=== PATIENT | female | born 1960 | race Caucasian/White ===

== ENCOUNTER 2023-05-23 12:23 | Observation (INO) | payer OTHER ==
[2023-05-23] MEDS ORDERED: Zofran 4 MG/2 ML VIAL IV ONE ×2 (12:58→14:05)
[2023-05-23] MEDS ORDERED: Sodium Chloride 0.9% 1000 ML 1,000 ML IV STA (12:58)
[2023-05-23] MEDS ORDERED: Sodium Chloride 0.9% 1000 ML 1,000 ML ONE (13:02)
[2023-05-23 13:16] LABS: Absolute Neutrophil Ct (ANC) 11.79 x10^3/uL (1.4-6.9); BASOPHIL % 0.4 % (0.0-0.4); Basophil (Absolute #) 0.05 x10^3/uL (0-0.4); Eosinophil % 0.6 % (0.00-5.0); Eosinophil (Absolute #) 0.08 x10^3/uL (0-0.5); Hematocrit 46.8 % (35-47); Hemoglobin 14.3 g/dL (12.0-16.0); IMMATURE GRAN # 0.07 x10^3u/L (0.00-0.03); IMMATURE GRAN % 0.5 % (0.00-0.4); Lymphocyte (Absolute #) 0.34 x10^3/uL (1.0-4.6); Lymphocytes % 2.6 % (24.0-44.0); Mean Corpuscular Hemoglobin 28.7 pg (26-32); Mean Corpuscular Hgb Concent. 30.6 g/dL (32-36); Monocyte (Absolute #) 0.73 x10^3/uL (0.0-1.3); Monocytes % 5.6 % (0.0-12.0); Neutrophil % 90.3 % (36.0-66.0); Platelet Count 218 x10^3/uL (150-450); Red Blood Count 4.98 x10^6/uL (4.1-5.4); Red Cell Distribution Width 13.3 % (11.5-14.0); White Blood Count 13.1 x10^3/uL (4.0-10.5)
[2023-05-23 13:39] LABS: ALBUMIN 4.6 g/dL (3.5-5.0); BILIRUBIN,TOTAL 1.2 mg/dL (0.2-1.3); Calcium 9.6 mg/dL (8.4-10.2); Creatinine 1 1.89 mg/dL (0.52-1.04); EST GLOMERULAR FILTRATION RATE 28.6 ML/MIN; Potassium 4.7 mmol/L (3.5-5.1); Total Protein 7.7 g/dL (6.3-8.2)
[2023-05-23] MEDS ORDERED: Zofran 4 MG/2 ML VIAL ONE (14:03)
[2023-05-23 14:13] LABS: Slide Review 1 YES
[2023-05-23] MEDS ORDERED: TYLENOL EXTRA STRENGTH 500 MG PO PRN (14:32)
[2023-05-23] MEDS ORDERED: TYLENOL EXTRA STRENGTH 500 MG ONE (14:33)
[2023-05-23] MEDS: Sodium Chloride 0.9% 1000 ML 1,000 ML IV SCH ×2 (14:34→17:42)
--- NOTE | 2023-05-23 15:24 | XRAY ---
CLINICAL HISTORY:fall. syncope COMPARISON:None; TECHNIQUES:Nonenhanced CT scan of the brain in axial plane with multiplanar reconstructions in soft tissue windows; FINDINGS: Normal CT attenuation of both cerebral hemispheres with no areas of abnormal attenuation values. No suspicious space-occupying lesions. No intra or extra-axial collections of fresh blood density. Normal size and shape of the ventricles, basal cisterns and cortical sulci. Basal ganglia, thalamus and internal capsule appear normal. Brainstem and pedro appear normal. No shift of midline structures. Unremarkable posterior fossa. Largely preserved cranial calvarial bones. Visualized paranasal sinuses appear clear. Deviated nasal septum towards left side. IMPRESSION: No acute intracranial abnormality. Electronically Signed by: Erickson Shoemaker MD. (05/23/2023 14:20:44 SPRING PRODUCTION SUPERVISOR)
--- NOTE | 2023-05-23 15:28 | ERPHSYRPT ---
- History of Present Illness Time Seen by Provider: 05/23/23 12:39 Source: patient, family, EMS Exam Limitations: no limitations Patient Subjective Stated Complaint: Sycope-N/V Triage Nursing Assessment: Patient brought into ED per EMS and transferred to bed with assist of 3. Patient A+O X 3. Patient's skin pink, warm and dry. Patient states she woke up at 0700 with vomiting and diarrhea. Patient states she thinks she ate something bad last night. Patient states she was going to bathroom to have BM and the next thing she remembers she is on the floor. Patient has 1 cm laceration noted to left side of head. Patient complains of intermittent abdominal aching /. Patient complains of dizziness, headache, N/V. Abdomen soft and round with BS X 4. Physician History: 62 years old female with history of anxiety depression, hypertension, GERD presented to the ER via EMS with chief complaint of gastroenteritis with near syncopal episode. Patient reports she woke up around 7 AM, had some abdominal discomfort/cramping and started to have intractable nausea vomiting diarrhea. She had multiple episodes of loose watery stool without hematochezia. No hematemesis. She had to go back and forth to the bathroom and was going to the bathroom, felt weak all over and collapsed on the floor. Denies any chest pain palpitations or shortness of breath before or after the fall. was next room and found her on the floor, does not think patient had a loss of consciousness if they are more than few seconds. She was not confused or altered. No seizure-like activity noticed. Patient reports generalized weakne ss fatigue and tiredness. Lack of energy and feels dehydrated. Patient thinks this is secondary to the food she had last night. No fever or chills reported. Denies any known sick contact. Timing/Duration: today, resolved prior to arrival, sudden, improved Severity: moderate Associated Symptoms: nausea, vomiting, abdominal pain, headaches, syncope, weakness, No shortness of breath, No cough, No chills, No chest pain, No fever, No loss of appetite, No malaise Allergies/Adverse Reactions: moxifloxacin HCl [From Avelox] Allergy (Intermediate, Verified 05/23/23 12:24) rash, itching, tachycardia Home Medications: Acetaminophen [Tylenol Extra Strength] 500 mg PO PRN 03/25/12 [History] Escitalopram Oxalate [Lexapro] 20 mg PO DAILY 03/25/12 [History] Esomeprazole Magnesium [Nexium] 40 mg PO DAILY 03/25/12 [History] Hctz/Triamteren 37.5 mg/25 mg* [Maxzide-25MG Tablet] 12.5 mg PO DAILY 03/25/12 [History] Metoprolol Succinate 25 mg PO BID 03/25/12 [History] Olmesartan Medoxomil 20 mg [Benicar 20 MG] 20 mg PO DAILY 03/25/12 [History] Hx Tetanus, Diphtheria Vaccination/Date Given: No (20 YRS AGO) Hx Influenza Vaccination/Date Given: No Hx Pneumococcal Vaccination/Date Given: Yes Immunizations Up to Date: Yes Travel Risk - International Travel Have you traveled outside of the country in past 3 weeks: No - Coronavirus Screening Are you exhibiting any of the following symptoms?: No Close contact with a COVID-19 positive Pt in past 14-21 Days: No - Vaccine Status Have you recieved a Covid-19 vaccination: Yes Insurance Underwriter: Modern[employer] - Vaccination Dates Date of 2cond Vaccination (if applicable): na - Review of Systems Constitutional: Fatigue, Weakness Eyes: No Symptoms Ears, Nose, & Throat: No Symptoms Respiratory: No Symptoms Cardiac: No Symptoms Abdominal/Gastrointestinal: Abdominal Pain, Nausea, Vomiting, Diarrhea Genitourinary Symptoms: No Symptoms Musculoskeletal: No Symptoms Skin: No Symptoms Neurological: Headache Psychological: No Symptoms Endocrine: No Symptoms Hematologic/Lymphatic: No Symptoms Immunological/Allergic: No Symptoms - Past Medical History Pertinent Past Medical History: No Neurological History: No Pertinent History ENT History: No Pertinent History Cardiac History: High Cholesterol, Hypertension Respiratory History: No Pertinent History, COPD Endocrine Medical History: No Pertinent History Musculoskeletal History: No Pertinent History GI Medical History: GERD History: No Pertinent History Psycho-Social History: No Pertinent History Female Reproductive Disorders: Breast Cancer Other Medical History: 13 LYMPH NODES REMOVED IN HER LEFT ARM IN 1985 - Past Surgical History Past Surgical History: Yes Neuro Surgical History: No Pertinent History Cardiac: No Pertinent History Respiratory: No Pertinent History Gastrointestinal: No Pertinent History Genitourinary: No Pertinent History Musculoskeletal: No Pertinent History Female Surgical History: Breast Implant Other Surgical History: 13 LYMPH NODES REMOVED IN HER LEFT ARM, LILA MASTECTOMY FROM BREAST CA WITHOUT ANY CHEMO TX - Social History Smoking Status: Former smoker Exposure to second hand smoke: No Drug Use: none Patient Lives Alone: No - Nursing Vital Signs Nursing Vital Signs: Initial Vital Signs Temperature 97.6 F 05/23/23 12:29 Pulse Rate 64 05/23/23 12:29 Respiratory Rate 18 05/23/23 12:29 Blood Pressure 111/38 05/23/23 12:29 O2 Sat by Pulse Oximetry 96 05/23/23 12:29 Pain Scale Pain Intensity 5 - Physical Exam General Appearance: no apparent distress, alert Eye Exam: PERRL/EOMI, eyes nml inspection Ears, Nose, Throat Exam: normal ENT inspection, TMs normal, pharynx normal Neck Exam: normal inspection, non-tender, supple, full range of motion Respiratory Exam: normal breath sounds, lungs clear Cardiovascular Exam: regular rate/rhythm, normal heart sounds Gastrointestinal/Abdomen Exam: soft, normal bowel sounds, No tenderness Extremity Exam: normal inspection, normal range of motion, pelvis stable Neurologic Exam: alert, oriented x 3, cooperative, leaf coverer II-XII nml as tested, normal mood/affect, nml cerebellar function, sensation nml, other (2 cm laceration left anterior parietal area with no active spurting or oozing. No step in deformity.), No motor deficits, No sensory deficit Skin Exam: normal color, warm SpO2 Interpretation: normal SpO2: 97 O2 Delivery: Room Air Procedures - Laceration/Wound Repair Left Frontal Time of Procedure: 15:00 Wound Location: head Wound Length (cm): 2 Wound's Depth, Shape: superficial Wound Explored: clean Irrigated: Yes Hibiclens Prep: Yes Anesthesia: 1% Lidocaine Volume Anesthetic (ccs): 2 Wound Repaired With: Benedict Number of Sutures: 2 Layer Closure?: No Splint Applied?: No Sling Applied?: No - Course EKG Interpreted by Me: RATE (64), Sinus Rhythm, NORMAL AXIS, NORMAL INTERVALS, NORMAL QRS Ordered Tests: Active Orders 24 hr Category Date Time Status EKG-ER Only STAT Care 05/23/23 12:58 Active IV Insertion STAT Care 05/23/23 12:58 Active NPO (ED) STAT Care 05/23/23 12:58 Active ABDOMEN AND PELVIS W/0 CONTRAS [CT] Stat Exams 05/23/23 12:58 Taken CHEST 1 VIEW (PORTABLE) Stat Exams 05/23/23 12:58 Taken HEAD WITHOUT CONTRAST [CT] Stat Exams 05/23/23 12:58 Completed CBC W DIFF Stat Lab 05/23/23 13:11 Completed CMP Stat Lab 05/23/23 13:11 Completed LIPASE Stat Lab 05/23/23 13:11 Completed Lactic Acid Stat Lab 05/23/23 13:10 Completed Lactic Acid Stat Lab 05/23/23 15:15 Received MAG [MAGNESIUM] Stat Lab 05/23/23 13:11 Completed PROCALCITONIN Stat Lab 05/23/23 13:13 Completed TROPONIN Q4H Lab 05/23/23 13:11 Completed TROPONIN Q4H Lab 05/23/23 17:00 Ordered TROPONIN Q4H Lab 05/23/23 21:00 Ordered UA W/RFX UR CULTURE Stat Lab 05/23/23 12:58 Ordered Medication Summary Generic Name Dose Route Start Last Admin Trade Name Freq PRN Reason Stop Dose Admin Acetaminophen 1,000 mg 05/23/23 14:32 05/23/23 14:34 Acetaminophen 500 Mg Tablet PO 06/22/23 14:31 1,000 mg Q4H PRN PRN Administration HEADACHE Sodium Chloride 1,000 mls @ 125 mls/hr 05/23/23 14:30 05/23/23 14:34 Sodium Chloride 0.9% 1000 Ml IV 06/22/23 14:29 125 mls/hr .Q8H MARY Administration Discontinued Medications Generic Name Dose Route Start Last Admin Trade Name Freq PRN Reason Stop Dose Admin Sodium Chloride 1,000 mls @ 999 mls/hr 05/23/23 12:58 05/23/23 14:09 Sodium Chloride 0.9% 1000 Ml IV 05/23/23 13:58 Infused .Q1H1M STA Infusion Sodium Chloride Confirm 05/23/23 13:02 Sodium Chloride 0.9% 1000 Ml Administered 05/23/23 13:03 Dose 1,000 mls @ ud .ROUTE .STK-MED ONE Ondansetron HCl 4 mg 05/23/23 12:58 05/23/23 13:03 Ondansetron Hcl 4 Mg/2 Ml Vial IV 05/23/23 12:59 Not Given STAT ONE Ondansetron HCl Confirm 05/23/23 14:03 Ondansetron Hcl 4 Mg/2 Ml Vial Administered 05/23/23 14:04 Dose 4 mg .ROUTE .STK-MED ONE Ondansetron HCl 4 mg 05/23/23 14:05 05/23/23 14:05 Ondansetron Hcl 4 Mg/2 Ml Vial IV 05/23/23 14:06 4 mg STAT ONE Administration Lab/Rad Data: Laboratory Result Diagrams 05/23/23 13:11 05/23/23 13:11 Laboratory Results 05/23/23 05/23/23 05/23/23 Range/Units 13:13 13:11 13:11 WBC (4.0-10.5) x10^3/uL RBC (4.1-5.4) x10^6/uL Hgb (12.0-16.0) g/dL Hct (35-47) % MCV (78-100) fL MCH (26-32) pg MCHC (32-36) g/dL RDW (11.5-14.0) % Plt Count (150-450) x10^3/uL MPV (7.5-11.0) fL Gran % (36.0-66.0) % Immature Gran % (Auto) (0.00-0.4) % Nucleat RBC Rel Count (0.00-0.1) % Eos # (Auto) (0-0.5) x10^3/uL Immature Gran # (Auto) (0.00-0.03) x10^3u/L Absolute Lymphs (auto) (1.0-4.6) x10^3/uL Absolute Monos (auto) (0.0-1.3) x10^3/uL Absolute Nucleated RBC (0.00-0.01) x10^3u/L Lymphocytes % (24.0-44.0) % Monocytes % (0.0-12.0) % Eosinophils % (0.00-5.0) % Basophils % (0.0-0.4) % Absolute Granulocytes (1.4-6.9) x10^3/uL Basophils # (0-0.4) x10^3/uL Sodium (137-145) mmol/L Potassium (3.5-5.1) mmol/L Chloride (98-107) mmol/L Carbon Dioxide (22-30) mmol/L Anion Gap (5-15) MEQ/L BUN (7-17) mg/dL Creatinine (0.52-1.04) mg/dL Estimated GFR ML/MIN Glucose (74-106) mg/dL Lactic Acid (0.4-2.0) Calcium (8.4-10.2) mg/dL Magnesium 1.8 (1.6-2.3) mg/dL Total Bilirubin (0.2-1.3) mg/dL AST (14-36) U/L ALT (0-35) U/L Alkaline Phosphatase (38-126) U/L Troponin I < 0.012 (0.000-0.034) ng/mL Serum Total Protein (6.3-8.2) g/dL Albumin (3.5-5.0) g/dL Lipase (23-300) U/L Procalcitonin 0.581 H (0.030-0.080) ng/mL Slides for Path Review 05/23/23 05/23/23 05/23/23 Range/Units 13:11 13:11 13:10 WBC 13.1 H (4.0-10.5) x10^3/uL RBC 4.98 (4.1-5.4) x10^6/uL Hgb 14.3 (12.0-16.0) g/dL Hct 46.8 (35-47) % MCV 94.0 (78-100) fL MCH 28.7 (26-32) pg MCHC 30.6 L (32-36) g/dL RDW 13.3 (11.5-14.0) % Plt Count 218 (150-450) x10^3/uL MPV 10.0 (7.5-11.0) fL Gran % 90.3 H (36.0-66.0) % Immature Gran % (Auto) 0.5 H (0.00-0.4) % Nucleat RBC Rel Count 0.0 (0.00-0.1) % Eos # (Auto) 0.08 (0-0.5) x10^3/uL Immature Gran # (Auto) 0.07 H (0.00-0.03) x10^3u/L Absolute Lymphs (auto) 0.34 L (1.0-4.6) x10^3/uL Absolute Monos (auto) 0.73 (0.0-1.3) x10^3/uL Absolute Nucleated RBC 0.00 (0.00-0.01) x10^3u/L Lymphocytes % 2.6 L (24.0-44.0) % Monocytes % 5.6 (0.0-12.0) % Eosinophils % 0.6 (0.00-5.0) % Basophils % 0.4 (0.0-0.4) % Absolute Granulocytes 11.79 H (1.4-6.9) x10^3/uL Basophils # 0.05 (0-0.4) x10^3/uL Sodium 140 (137-145) mmol/L Potassium 4.7 (3.5-5.1) mmol/L Chloride 106 (98-107) mmol/L Carbon Dioxide 23 (22-30) mmol/L Anion Gap 16.0 H (5-15) MEQ/L BUN 31 H (7-17) mg/dL Creatinine 1.89 H (0.52-1.04) mg/dL Estimated GFR 28.6 ML/MIN Glucose 127 H (74-106) mg/dL Lactic Acid 2.1 H (0.4-2.0) Calcium 9.6 (8.4-10.2) mg/dL Magnesium (1.6-2.3) mg/dL Total Bilirubin 1.20 (0.2-1.3) mg/dL AST 32 (14-36) U/L ALT 31 (0-35) U/L Alkaline Phosphatase 56 (38-126) U/L Troponin I (0.000-0.034) ng/mL Serum Total Protein 7.7 (6.3-8.2) g/dL Albumin 4.6 (3.5-5.0) g/dL Lipase 183 (23-300) U/L Procalcitonin (0.030-0.080) ng/mL Slides for Path Review YES - Progress Progress: improved Progress Note: 05/23/23 15:30 62 years old female with history of anxiety depression, hypertension, GERD presented to the ER via EMS with chief complaint of gastroenteritis with near syncopal episode. Patient reports she woke up around 7 AM, had some abdominal discomfort/cramping and started to have intractable nausea vomiting diarrhea. She had multiple episodes of loose watery stool without hematochezia. No hematemesis. She had to go back and forth to the bathroom and was going to the bathroom, felt weak all over and collapsed on the floor. Denies any chest pain palpitations or shortness of breath before or after the fall. was next room and found her on the floor, does not think patient had a loss of consciousness if they are more than few seconds. She was not confused or altered. No seizure-like activity noticed. Patient reports generalized weakness fatigue and tiredness. Lack of energy and feels dehydrated. Patient thinks this is secondary to the food she had last night. No fever or chills reported. Denies any known sick contact. EKG showed sinus rhythm with a rate of 64 with no acute ischemic changes. Patient was hypotensive and has a positive orthostatics, given fluid bolus along with Zofran. On reevaluation she is feeling much better. I have obtained CT head as patient did hit her head and has a lack, is negative for any acute intracranial findings. Chest x-ray negative for any acute cardiopulmonary findings reviewed by me, official report is pending. Work-up showed white count of 13, creatinine of 1.83 with previous comparison available in 2017 creatinine was less than 1. She does not have any episode of vomiting while in the ER but does have loose stool x1. Denies any chest pain or palpitations while in here. Blood pressure improved to low 100s after fluids. CT abdomen pelvis is negative for any acute intraabdominal/pelvic findings. I believe patient has probably viral gastroenteritis with dehydration causing orthostatic lightheadedness/near syncope/syncopal episode. I have discussed with patient the results of work-up and need for observation admission with IV hydration and she agrees with it. Laceration on the scalp was repaired. 05/23/23 15:33 05/23/23 16:[address] Fraire, reviewed history, work-up and patient is being admitted. We will hold off on antibiotics although has elevated Pro-Rc but no obvious focus of infection. Discussed with : Other Will see patient in: hospital (observation) Counseled pt/family regarding: lab results, diagnosis, need for follow-up, rad results Medical Desision Making - Independent Historian Additional History obtained from: Spouse, Medication Care Manager/EMT - Discussion of managment Care discussed with:: hospitalist (Dr. Fraire at 1635) Reviewed:: Test results, Need for additional workup Agreed on:: Treatment plan, place in obs Will see patient: in hospital - Diagnostic Testing Diagnostic test were ordered, analyzed, and reviewed by me: Yes Radiological Interpretation: Interpreted by me, Reviewed by me - Risk of complications The pt has a high risk of morbidity or mortality based on: Decision regarding hospitilization or escalation of hosp level of care - Departure Departure Disposition: Observation Clinical Impression: Syncope due to orthostatic hypotension, Acute gastroenteritis, Acute renal failure Condition: Stable Critical Care Time: No Referrals: RADHAMES NEGRO MD [Primary Care Provider] - Follow up/PCP as directed
[2023-05-23] MEDS ORDERED: Zofran 4 MG/2 ML VIAL IV PRN (17:19)
[2023-05-23] MEDS ORDERED: TYLENOL 325 MG PO PRN (17:19)
[2023-05-23 17:23] LABS: Appearance Turbid (Clear); Bacteria Few /HPF (None Seen); Bilirubin Moderate (Negative); Blood Negative (Negative); Epithelial Cells Moderate /HPF (None Seen); Glucose, Urine Negative (Negative); Hyaline Casts >50 /LPF (0-2); Ketones Trace (Negative); Leukocyte Esterase Small (Negative); Nitrite Negative (Negative); Protein,Urine Dip 100 (Negative); Specific Gravity >=1.030 (1.005-1.030)
[2023-05-23 17:25] LABS: ADD URINE CULTURE? YES (NO)
[2023-05-23] MEDS ORDERED: PROTONIX 40 MG IV IV ONE (17:41)
--- NOTE | 2023-05-23 18:28 | XRAY ---
CLINICAL HISTORY:gastroenteritis COMPARISON:None. TECHNIQUE:Contiguous, multislice, nonenhanced CT scan of the abdomen and pelvis was performed in the axial plane with multiplanar reconstructions. FINDINGS: Normal-sized liver showing homogeneous attenuation with no obvious focal mass lesion within the limitations of noncontrast study. No intrahepatic biliary dilatation.Gallbladder is surgically removed as evidenced by metallic densities in the gallbladder fossa.Pancreas and spleen appear unremarkable.Sliding hiatal hernia.No adrenal mass.Both kidneys appear normal in size, shows normal contour and attenuation. A small peripelvic cyst at the lower pole of left kidney measuring about 15 mm.No calculus or hydronephrosis in either kidney.No ascites. No para-aortic lymphadenopathy.Few noncomplicated colonic diverticulosis involving sigmoid colon without evidence of diverticulitis. Appendix visualized and appear within normal limits.Urinary bladder is empty.Pelvic organs appear unremarkable. No adnexal mass.Degenerative changes in the visualized spine. No acute osseous abnormality or suspicious bony lesions.Visualized sections of lower chest shows centrilobular emphysematous changes. Intrapulmonary nodule in the right lower lobe measures about 4.[address] chest may be recommended for further evaluation. IMPRESSION: Limited parenchymal evaluation within the limitations of noncontrast study. No acute intra-abdominal abnormality. Few noncomplicated colonic diverticulosis involving sigmoid colon without evidence of diverticulitis. A small peripelvic cyst at the lower pole of left kidney. Rest of the findings as detailed above. Electronically Signed by: Erickson Shoemaker MD. (05/23/2023 13:24:38 PUMP ERECTOR HELPER)
[2023-05-23] MEDS ORDERED: Lactated Ringers 1,000 ML IV ONE ×3 (18:34→20:03)
--- NOTE | 2023-05-23 18:55 | XRAY ---
Indication: Syncope. Comparison: June 12, 2007 Portable chest again hyperinflated without focal infiltrate, consolidation, or large effusion. Heart not enlarged. Bony thorax intact again with osteopenia and mild degenerative changes. Impression: Nonacute hyperinflated chest with chronic features.
[2023-05-23] MEDS: Advair Hfa 115/21 Common canister IH SCH (20:08)
[2023-05-23] MEDS: DUONEB 0.5-3 MG/3 ml Neb IH SCH (20:08)
[2023-05-23] MEDS ORDERED: ZOCOR 20MG PO ONE (22:30)
[2023-05-23] MEDS ORDERED: Protonix 20MG Tablet PO ONE (22:30)
[2023-05-23] MEDS ORDERED: Toprol-Xl 25MG Tablets PO ONE (22:30)
[2023-05-23] MEDS ORDERED: Zestril 20 MG PO ONE (22:30)
[2023-05-23] MEDS ORDERED: Lexapro PO ONE (22:30)
[2023-05-23] MEDS ORDERED: Protonix 40MG Tablet ONE (22:53)
[2023-05-24] MEDS: Sodium Chloride 0.9% 1000 ML 1,000 ML IV SCH (00:29)
[2023-05-24 04:59] LABS: BASOPHIL % 0.1 % (0.0-0.4); Basophil (Absolute #) 0.01 x10^3/uL (0-0.4); Eosinophil % 0.1 % (0.00-5.0); Eosinophil (Absolute #) 0.01 x10^3/uL (0-0.5); Hematocrit 38.6 % (35-47); Hemoglobin 11.6 g/dL (12.0-16.0); IMMATURE GRAN # 0.03 x10^3u/L (0.00-0.03); IMMATURE GRAN % 0.4 % (0.00-0.4); Lymphocyte (Absolute #) 0.34 x10^3/uL (1.0-4.6); Lymphocytes % 4.3 % (24.0-44.0); Mean Cell Volume 94.1 fL (78-100); Mean Corpuscular Hemoglobin 28.3 pg (26-32); Mean Corpuscular Hgb Concent. 30.1 g/dL (32-36); Mean Platelet Volume 10.2 fL (7.5-11.0); Monocyte (Absolute #) 0.65 x10^3/uL (0.0-1.3); Monocytes % 8.2 % (0.0-12.0); Neutrophil % 86.9 % (36.0-66.0); Platelet Count 177 x10^3/uL (150-450); Red Cell Distribution Width 13.6 % (11.5-14.0); White Blood Count 7.9 x10^3/uL (4.0-10.5)
[2023-05-24 05:25] LABS: ALBUMIN 3.5 g/dL (3.5-5.0); ANION GAP 12.7 MEQ/L (5-15); BILIRUBIN,TOTAL 1.1 mg/dL (0.2-1.3); Calcium 8.3 mg/dL (8.4-10.2); Creatinine 1 1.5 mg/dL (0.52-1.04); EST GLOMERULAR FILTRATION RATE 37.3 ML/MIN; Potassium 4.8 mmol/L (3.5-5.1); Total Protein 6.2 g/dL (6.3-8.2)
[2023-05-24 06:18] LABS: Slide Review 1 YES
--- NOTE | 2023-05-24 06:33 | PCM.HP ---
History of Present Illness - Chief Complaint Chief Complaint: Syncope Date: 05/23/23 History of Present Illness: is a 62 year old female. She presents with orthostatic syncope and laceration to the head which required two stapes in the ED. She reports acute onset of nausea and diarrhea and emesis that caused her to feel weak. She got up to go to the bathroom and lost consciousness. this began after eating some lunch meat her got her. Her hubasnd did not eat the meat and is fine. She fed the meet to her dogs who are also ill. No fevers or chills. She has been unable to keep food or liquids down. - Review of Systems Eyes: No Symptoms Ears, Nose, & Throat: No Symptoms Respiratory: No Symptoms Cardiac: No Symptoms Abdominal/Gastrointestinal: Diarrhea Genitourinary Symptoms: No Symptoms Musculoskeletal: No Symptoms Skin: No Symptoms Medications & Allergies Home Medications: Home Medication List Acetaminophen [Tylenol Extra Strength] 500 mg PO Q4H PRN 03/25/12 [History Confirmed 05/23/23] Escitalopram Oxalate [Lexapro] 20 mg PO HS 03/25/12 [History Confirmed 05/23/23] Esomeprazole Magnesium [Nexium] 40 mg PO HS 03/25/12 [History Confirmed 05/23/23] Metoprolol Succinate 25 mg PO BID 03/25/12 [History Confirmed 05/23/23] Albuterol Sulfate 1 amp IH Q4H PRN 05/23/23 [History Confirmed 05/23/23] Budesonide/Formoterol Fumarate [Budesonide-Formoterol 160-4.5] 2 puffs IH BID 05/23/23 [History Confirmed 05/23/23] Pravastatin Sodium 40 mg PO HS 05/23/23 [History Confirmed 05/23/23] Spironolact/Hydrochlorothiazid [Aldactazide 25-25 Tablet] 1 each PO DAILY 05/23/23 [History Confirmed 05/23/23] lisinopriL [Lisinopril] 40 mg PO HS 05/23/23 [History Confirmed 05/23/23] Allergies/Adverse Reactions: Allergies Allergy/AdvReac Type Severity Reaction Status Date / Time moxifloxacin HCl Allergy Intermediate rash, Verified 05/23/23 12:24 [From Avelox] itching, tachycardia - Past Medical History Past Medical History: Yes Neurological History: No Pertinent History ENT History: No Pertinent History Cardiac History: High Cholesterol, Hypertension Respiratory History: No Pertinent History, COPD Endocrine Medical History: No Pertinent History Musculoskelatal History: No Pertinent History GI Medical History: GERD, Gallbladder Disease History: No Pertinent History Pyscho-Social History: Depression Reproductive Disorders: Breast Cancer Comment: 13 LYMPH NODES REMOVED IN HER LEFT ARM IN 1985 - Female History Are you now?: No - Past Surgical History Past Surgical History: Yes Neuro Surgical History: No Pertinent History Cardiac History: No Pertinent History Respiratory Surgery: No Pertinent History GI Surgical History: Cholecystectomy Genitourinary Surgical Hx: No Pertinent History Musculskeletal Surgical Hx: No Pertinent History Female Surgical History: Mastectomy, Breast Implant Other Surgical History: 13 LYMPH NODES REMOVED IN HER LEFT ARM, LILA MASTECTOMY FROM BREAST CA WITHOUT ANY CHEMO TX, GALLBLADDER SX 2011 - Social History Smoking Status: Former smoker How long have you smoked: 35 Exposure to second hand smoke: No Alcohol: None Drug Use: none - Physical Exam Vital Signs: Vital Signs - 24 hr Temp Pulse Resp BP Pulse Ox 05/24/23 04:00 98.7 F 85 16 124/58 91 L 05/24/23 00:00 97.1 F 84 17 139/60 91 L 05/23/23 21:40 141/60 05/23/23 20:08 78 20 94 L 05/23/23 20:00 97.1 F 92 H 18 122/56 91 L 05/23/23 19:59 142/62 05/23/23 18:42 86 106/49 96 05/23/23 18:41 72 118/53 96 05/23/23 18:09 79 20 94 L 05/23/23 17:33 96.8 F 77 18 143/63 93 L 05/23/23 16:42 97 05/23/23 14:10 62 18 83/33 97 05/23/23 12:29 97.6 F 64 18 111/38 96 General Appearance: no apparent distress Neurologic Exam: alert, oriented x 3, cooperative Neck Exam: normal inspection Respiratory Exam: normal breath sounds Cardiovascular Exam: regular rate/rhythm, normal heart sounds Gastrointestinal/Abdomen Exam: soft, normal bowel sounds Wound Assessment: Skin/Wound Assessment Wound/Incision Assessment Start: 05/23/23 17:36 Text: Status: Active Freq: Q12H Protocol: Document 05/23/23 20:00 LB (Rec: 05/23/23 20:20 LB [id number]) Wound/Incision Assessment Left Frontal Wound Assessment Shift Assessment Wound Type Laceration Drainage Odor None/Absent General Appearance Well Approximated,[place] Intact,Open to air Results - Labs Lab/Micro Results: Lab Results-Last 24 Hours 05/23/23 05/23/23 05/23/23 Range/Units 13:10 13:11 13:11 WBC 13.1 H (4.0-10.5) x10^3/uL RBC 4.98 (4.1-5.4) x10^6/uL Hgb 14.3 (12.0-16.0) g/dL Hct 46.8 (35-47) % MCV 94.0 (78-100) fL MCH 28.7 (26-32) pg MCHC 30.6 L (32-36) g/dL RDW 13.3 (11.5-14.0) % Plt Count 218 (150-450) x10^3/uL MPV 10.0 (7.5-11.0) fL Gran % 90.3 H (36.0-66.0) % Immature Gran % (Auto) 0.5 H (0.00-0.4) % Nucleat RBC Rel Count 0.0 (0.00-0.1) % Eos # (Auto) 0.08 (0-0.5) x10^3/uL Immature Gran # (Auto) 0.07 H (0.00-0.03) x10^3u/L Absolute Lymphs (auto) 0.34 L (1.0-4.6) x10^3/uL Absolute Monos (auto) 0.73 (0.0-1.3) x10^3/uL Absolute Nucleated RBC 0.00 (0.00-0.01) x10^3u/L Lymphocytes % 2.6 L (24.0-44.0) % Monocytes % 5.6 (0.0-12.0) % Eosinophils % 0.6 (0.00-5.0) % Basophils % 0.4 (0.0-0.4) % Absolute Granulocytes 11.79 H (1.4-6.9) x10^3/uL Basophils # 0.05 (0-0.4) x10^3/uL Sodium 140 (137-145) mmol/L Potassium 4.7 (3.5-5.1) mmol/L Chloride 106 (98-107) mmol/L Carbon Dioxide 23 (22-30) mmol/L Anion Gap 16.0 H (5-15) MEQ/L BUN 31 H (7-17) mg/dL Creatinine 1.89 H (0.52-1.04) mg/dL Estimated GFR 28.6 ML/MIN Glucose 127 H (74-106) mg/dL Lactic Acid 2.1 H (0.4-2.0) Calcium 9.6 (8.4-10.2) mg/dL Magnesium (1.6-2.3) mg/dL Total Bilirubin 1.20 (0.2-1.3) mg/dL AST 32 (14-36) U/L ALT 31 (0-35) U/L Alkaline Phosphatase 56 (38-126) U/L Troponin I (0.000-0.034) ng/mL Serum Total Protein 7.7 (6.3-8.2) g/dL Albumin 4.6 (3.5-5.0) g/dL Lipase 183 (23-300) U/L Procalcitonin (0.030-0.080) ng/mL Urine Color (Yellow) Urine Appearance (Clear) Urine pH (4.6-8.0) Ur Specific [place] (1.005-1.030) Urine Protein (Negative) Urine Glucose (UA) (Negative) mg/dL Urine Ketones (Negative) Urine Blood (Negative) Urine Nitrite (Negative) Urine Bilirubin (Negative) Urine Urobilinogen (0.2) mg/dL Ur Leukocyte Esterase (Negative) U Hyaline Cast (Auto) (0-2) /LPF Urine Microscopic RBC (0-5) /HPF Urine Microscopic WBC (0-5) /HPF Ur Epithelial Cells (None Seen) /HPF Urine Bacteria (None Seen) /HPF Urine Culture Reflexed (NO) Slides for Path Review YES 05/23/23 05/23/23 05/23/23 Range/Units 13:11 13:11 13:13 WBC (4.0-10.5) x10^3/uL RBC (4.1-5.4) x10^6/uL Hgb (12.0-16.0) g/dL Hct (35-47) % MCV (78-100) fL MCH (26-32) pg MCHC (32-36) g/dL RDW (11.5-14.0) % Plt Count (150-450) x10^3/uL MPV (7.5-11.0) fL Gran % (36.0-66.0) % Immature Gran % (Auto) (0.00-0.4) % Nucleat RBC Rel Count (0.00-0.1) % Eos # (Auto) (0-0.5) x10^3/uL Immature Gran # (Auto) (0.00-0.03) x10^3u/L Absolute Lymphs (auto) (1.0-4.6) x10^3/uL Absolute Monos (auto) (0.0-1.3) x10^3/uL Absolute Nucleated RBC (0.00-0.01) x10^3u/L Lymphocytes % (24.0-44.0) % Monocytes % (0.0-12.0) % Eosinophils % (0.00-5.0) % Basophils % (0.0-0.4) % Absolute Granulocytes (1.4-6.9) x10^3/uL Basophils # (0-0.4) x10^3/uL Sodium (137-145) mmol/L Potassium (3.5-5.1) mmol/L Chloride (98-107) mmol/L Carbon Dioxide (22-30) mmol/L Anion Gap (5-15) MEQ/L BUN (7-17) mg/dL Creatinine (0.52-1.04) mg/dL Estimated GFR ML/MIN Glucose (74-106) mg/dL Lactic Acid (0.4-2.0) Calcium (8.4-10.2) mg/dL Magnesium 1.8 (1.6-2.3) mg/dL Total Bilirubin (0.2-1.3) mg/dL AST (14-36) U/L ALT (0-35) U/L Alkaline Phosphatase (38-126) U/L Troponin I < 0.012 (0.000-0.034) ng/mL Serum Total Protein (6.3-8.2) g/dL Albumin (3.5-5.0) g/dL Lipase (23-300) U/L Procalcitonin 0.581 H (0.030-0.080) ng/mL Urine Color (Yellow) Urine Appearance (Clear) Urine pH (4.6-8.0) Ur Specific [place] (1.005-1.030) Urine Protein (Negative) Urine Glucose (UA) (Negative) mg/dL Urine Ketones (Negative) Urine Blood (Negative) Urine Nitrite (Negative) Urine Bilirubin (Negative) Urine Urobilinogen (0.2) mg/dL Ur Leukocyte Esterase (Negative) U Hyaline Cast (Auto) (0-2) /LPF Urine Microscopic RBC (0-5) /HPF Urine Microscopic WBC (0-5) /HPF Ur Epithelial Cells (None Seen) /HPF Urine Bacteria (None Seen) /HPF Urine Culture Reflexed (NO) Slides for Path Review 05/23/23 05/23/23 05/23/23 Range/Units 15:15 16:58 17:45 WBC (4.0-10.5) x10^3/uL RBC (4.1-5.4) x10^6/uL Hgb (12.0-16.0) g/dL Hct (35-47) % MCV (78-100) fL MCH (26-32) pg MCHC (32-36) g/dL RDW (11.5-14.0) % Plt Count (150-450) x10^3/uL MPV (7.5-11.0) fL Gran % (36.0-66.0) % Immature Gran % (Auto) (0.00-0.4) % Nucleat RBC Rel Count (0.00-0.1) % Eos # (Auto) (0-0.5) x10^3/uL Immature Gran # (Auto) (0.00-0.03) x10^3u/L Absolute Lymphs (auto) (1.0-4.6) x10^3/uL Absolute Monos (auto) (0.0-1.3) x10^3/uL Absolute Nucleated RBC (0.00-0.01) x10^3u/L Lymphocytes % (24.0-44.0) % Monocytes % (0.0-12.0) % Eosinophils % (0.00-5.0) % Basophils % (0.0-0.4) % Absolute Granulocytes (1.4-6.9) x10^3/uL Basophils # (0-0.4) x10^3/uL Sodium (137-145) mmol/L Potassium (3.5-5.1) mmol/L Chloride (98-107) mmol/L Carbon Dioxide (22-30) mmol/L Anion Gap (5-15) MEQ/L BUN (7-17) mg/dL Creatinine (0.52-1.04) mg/dL Estimated GFR ML/MIN Glucose (74-106) mg/dL Lactic Acid 1.7 (0.4-2.0) Calcium (8.4-10.2) mg/dL Magnesium (1.6-2.3) mg/dL Total Bilirubin (0.2-1.3) mg/dL AST (14-36) U/L ALT (0-35) U/L Alkaline Phosphatase (38-126) U/L Troponin I < 0.012 (0.000-0.034) ng/mL Serum Total Protein (6.3-8.2) g/dL Albumin (3.5-5.0) g/dL Lipase (23-300) U/L Procalcitonin (0.030-0.080) ng/mL Urine Color Dark Yellow A (Yellow) Urine Appearance Turbid A (Clear) Urine pH 5.0 (4.6-8.0) Ur Specific [place] >=1.030 A (1.005-1.030) Urine Protein 100 A (Negative) Urine Glucose (UA) Negative (Negative) mg/dL Urine Ketones Trace A (Negative) Urine Blood Negative (Negative) Urine Nitrite Negative (Negative) Urine Bilirubin Moderate A (Negative) Urine Urobilinogen 1.0 A (0.2) mg/dL Ur Leukocyte Esterase Small A (Negative) U Hyaline Cast (Auto) >50 A (0-2) /LPF Urine Microscopic RBC 3-5 (0-5) /HPF Urine Microscopic WBC 6-10 A (0-5) /HPF Ur Epithelial Cells Moderate A (None Seen) /HPF Urine Bacteria Few A (None Seen) /HPF Urine Culture Reflexed YES (NO) Slides for Path Review 05/23/23 05/24/23 05/24/23 Range/Units 21:10 04:38 04:38 WBC 7.9 (4.0-10.5) x10^3/uL RBC 4.10 (4.1-5.4) x10^6/uL Hgb 11.6 L (12.0-16.0) g/dL Hct 38.6 (35-47) % MCV 94.1 (78-100) fL MCH 28.3 (26-32) pg MCHC 30.1 L (32-36) g/dL RDW 13.6 (11.5-14.0) % Plt Count 177 (150-450) x10^3/uL MPV 10.2 (7.5-11.0) fL Gran % 86.9 H (36.0-66.0) % Immature Gran % (Auto) 0.4 (0.00-0.4) % Nucleat RBC Rel Count 0.0 (0.00-0.1) % Eos # (Auto) 0.01 (0-0.5) x10^3/uL Immature Gran # (Auto) 0.03 (0.00-0.03) x10^3u/L Absolute Lymphs (auto) 0.34 L (1.0-4.6) x10^3/uL Absolute Monos (auto) 0.65 (0.0-1.3) x10^3/uL Absolute Nucleated RBC 0.00 (0.00-0.01) x10^3u/L Lymphocytes % 4.3 L (24.0-44.0) % Monocytes % 8.2 (0.0-12.0) % Eosinophils % 0.1 (0.00-5.0) % Basophils % 0.1 (0.0-0.4) % Absolute Granulocytes 6.90 (1.4-6.9) x10^3/uL Basophils # 0.01 (0-0.4) x10^3/uL Sodium 137 (137-145) mmol/L Potassium 4.8 (3.5-5.1) mmol/L Chloride 109 H (98-107) mmol/L Carbon Dioxide 21 L (22-30) mmol/L Anion Gap 12.7 (5-15) MEQ/L BUN 28 H (7-17) mg/dL Creatinine 1.50 H (0.52-1.04) mg/dL Estimated GFR 37.3 ML/MIN Glucose 91 (74-106) mg/dL Lactic Acid (0.4-2.0) Calcium 8.3 L (8.4-10.2) mg/dL Magnesium (1.6-2.3) mg/dL Total Bilirubin 1.10 (0.2-1.3) mg/dL AST 33 (14-36) U/L ALT 26 (0-35) U/L Alkaline Phosphatase 37 L (38-126) U/L Troponin I < 0.012 (0.000-0.034) ng/mL Serum Total Protein 6.2 L (6.3-8.2) g/dL Albumin 3.5 (3.5-5.0) g/dL Lipase (23-300) U/L Procalcitonin (0.030-0.080) ng/mL Urine Color (Yellow) Urine Appearance (Clear) Urine pH (4.6-8.0) Ur Specific [place] (1.005-1.030) Urine Protein (Negative) Urine Glucose (UA) (Negative) mg/dL Urine Ketones (Negative) Urine Blood (Negative) Urine Nitrite (Negative) Urine Bilirubin (Negative) Urine Urobilinogen (0.2) mg/dL Ur Leukocyte Esterase (Negative) U Hyaline Cast (Auto) (0-2) /LPF Urine Microscopic RBC (0-5) /HPF Urine Microscopic WBC (0-5) /HPF Ur Epithelial Cells (None Seen) /HPF Urine Bacteria (None Seen) /HPF Urine Culture Reflexed (NO) Slides for Path Review YES - Radiology Impressions Radiology Exams & Impressions: Radiology Procedures Category Date Time Status ABDOMEN AND PELVIS W/0 CONTRAS [CT] Stat Exams 05/23/23 12:58 Completed CHEST 1 VIEW (PORTABLE) Stat Exams 05/23/23 12:58 Completed HEAD WITHOUT CONTRAST [CT] Stat Exams 05/23/23 12:58 Completed - Other Procedures and Tests Respiratory Therapy 05/23/23 18:07 Respiratory Therapy Assessment DAILY Assessment/Plan (1) Syncope due to orthostatic hypotension Current Visit: Yes Status: Acute Assessment & Plan: Due to nausea and emesis wihtouh adequate PO intake, will check serial orthostatis and give IV fluids Code(s): I95.1 - ORTHOSTATIC HYPOTENSION (2) Acute gastroenteritis Current Visit: Yes Status: Acute Assessment & Plan: Likely due to spoiled food, will treat conservatively and replace lytes and fluids, will follow [facility] Code(s): K52.9 - NONINFECTIVE GASTROENTERITIS AND COLITIS, UNSPECIFIED (3) Acute renal failure Current Visit: Yes Status: Acute Assessment & Plan: 2/2 to 1 and 2, will check after adequate fluid resusctation, likely prerenal azotemia Telemedicine Encounter - Telemedicine Encounter Telemedicine Encounter: The entirety of this encounter was performed via Telemedicine"
[2023-05-24] MEDS ORDERED: DUONEB 0.5-3 MG/3 ml Neb IH ONE (07:11)
[2023-05-24] MEDS ORDERED: TYLENOL EXTRA STRENGTH 500 MG PO PRN (07:18)
[2023-05-24] MEDS ORDERED: PROVENTIL 2.5 MG/3 ML NEB IH PRN (07:18)
[2023-05-24 07:22] VITALS: BP 134/61
[2023-05-24] MEDS: DUONEB 0.5-3 MG/3 ml Neb IH SCH (07:22)
[2023-05-24] MEDS: Advair Hfa 115/21 Common canister IH SCH (07:25)
[2023-05-24 07:27] VITALS: PULSE 76; O2SAT 90
[2023-05-24] MEDS ORDERED: hydroDIURIL 25 MG PO SCH (10:00)
[2023-05-24] MEDS ORDERED: Toprol-Xl 25MG Tablets PO SCH (10:00)
[2023-05-24] MEDS ORDERED: [UNRECOGNIZED DRUG - OTHER] PO SCH (10:00)
[2023-05-24] MEDS ORDERED: Aldactone 25 MG PO SCH (10:00)
[2023-05-24] MEDS ORDERED: PROTONIX 40 MG IV IV SCH (10:00)
--- NOTE | 2023-05-24 10:21 | PCM.DS ---
Discharge Summary Date of Admission: 05/23/23 17:13 Date of Discharge: 05/24/2023 Admitting Physician: NGHIA IRIZARRY MD Primary Care Provider: RADHAMES NEGRO Allergies Allergies moxifloxacin HCl [From Avelox] Allergy (Intermediate, Verified 05/23/23 12:24) rash, itching, tachycardia Hospital Summary - Hospital Course Hospital Course: 62-year-old with a history of hypertension who presents with a week of severe nausea and diarrhea, eventually leading to dizziness and syncope, causing a fall. She had a laceration to the head that was sutured in the ED. On presentation, she had an acute kidney injury, with creatinine up to 1.9. She was admitted for observation and put on IV fluids. Her diarrhea resolved, and she was tolerating p.o. without difficulty. She was able to ambulate without any further dizziness. Her creatinine improved from 1.[address] to [address]. [address] abdomen pelvis was unremarkable. She is discharged home to encourage p.o. intake, and follow-up with PCP in 1 week with repeat BMP to ensure resolution of RAYMUNDO. - Vitals & Intake/Output Vital Signs: Vital Signs Temperature 98.9 F 05/24/23 07:17 Pulse Rate 76 05/24/23 07:26 Respiratory Rate 16 05/24/23 07:26 Blood Pressure 134/61 05/24/23 07:17 O2 Sat by Pulse Oximetry 90 L 05/24/23 07:26 Intake & Output: Intake & Output 05/21/23 05/22/23 05/23/23 05/24/23 11:59 11:59 11:59 11:59 Intake Total 4923 Output Total 920 Balance 4003 Weight 110.2 kg - Lab Result Diagrams: 05/24/23 04:38 05/24/23 04:38 Lab Results-Last 24 Hrs: Lab Results-Last 24 Hours 05/23/23 05/23/23 05/23/23 Range/Units 13:10 13:11 13:11 WBC 13.1 H (4.0-10.5) x10^3/uL RBC 4.98 (4.1-5.4) x10^6/uL Hgb 14.3 (12.0-16.0) g/dL Hct 46.8 (35-47) % MCV 94.0 (78-100) fL MCH 28.7 (26-32) pg MCHC 30.6 L (32-36) g/dL RDW 13.3 (11.5-14.0) % Plt Count 218 (150-450) x10^3/uL MPV 10.0 (7.5-11.0) fL Gran % 90.3 H (36.0-66.0) % Immature Gran % (Auto) 0.5 H (0.00-0.4) % Nucleat RBC Rel Count 0.0 (0.00-0.1) % Eos # (Auto) 0.08 (0-0.5) x10^3/uL Immature Gran # (Auto) 0.07 H (0.00-0.03) x10^3u/L Absolute Lymphs (auto) 0.34 L (1.0-4.6) x10^3/uL Absolute Monos (auto) 0.73 (0.0-1.3) x10^3/uL Absolute Nucleated RBC 0.00 (0.00-0.01) x10^3u/L Lymphocytes % 2.6 L (24.0-44.0) % Monocytes % 5.6 (0.0-12.0) % Eosinophils % 0.6 (0.00-5.0) % Basophils % 0.4 (0.0-0.4) % Absolute Granulocytes 11.79 H (1.4-6.9) x10^3/uL Basophils # 0.05 (0-0.4) x10^3/uL Sodium 140 (137-145) mmol/L Potassium 4.7 (3.5-5.1) mmol/L Chloride 106 (98-107) mmol/L Carbon Dioxide 23 (22-30) mmol/L Anion Gap 16.0 H (5-15) MEQ/L BUN 31 H (7-17) mg/dL Creatinine 1.89 H (0.52-1.04) mg/dL Estimated GFR 28.6 ML/MIN Glucose 127 H (74-106) mg/dL Lactic Acid 2.1 H (0.4-2.0) Calcium 9.6 (8.4-10.2) mg/dL Magnesium (1.6-2.3) mg/dL Total Bilirubin 1.20 (0.2-1.3) mg/dL AST 32 (14-36) U/L ALT 31 (0-35) U/L Alkaline Phosphatase 56 (38-126) U/L Troponin I (0.000-0.034) ng/mL Serum Total Protein 7.7 (6.3-8.2) g/dL Albumin 4.6 (3.5-5.0) g/dL Lipase 183 (23-300) U/L Procalcitonin (0.030-0.080) ng/mL Urine Color (Yellow) Urine Appearance (Clear) Urine pH (4.6-8.0) Ur Specific [place] (1.005-1.030) Urine Protein (Negative) Urine Glucose (UA) (Negative) mg/dL Urine Ketones (Negative) Urine Blood (Negative) Urine Nitrite (Negative) Urine Bilirubin (Negative) Urine Urobilinogen (0.2) mg/dL Ur Leukocyte Esterase (Negative) U Hyaline Cast (Auto) (0-2) /LPF Urine Microscopic RBC (0-5) /HPF Urine Microscopic WBC (0-5) /HPF Ur Epithelial Cells (None Seen) /HPF Urine Bacteria (None Seen) /HPF Urine Culture Reflexed (NO) Slides for Path Review YES 05/23/23 05/23/23 05/23/23 Range/Units 13:11 13:11 13:13 WBC (4.0-10.5) x10^3/uL RBC (4.1-5.4) x10^6/uL Hgb (12.0-16.0) g/dL Hct (35-47) % MCV (78-100) fL MCH (26-32) pg MCHC (32-36) g/dL RDW (11.5-14.0) % Plt Count (150-450) x10^3/uL MPV (7.5-11.0) fL Gran % (36.0-66.0) % Immature Gran % (Auto) (0.00-0.4) % Nucleat RBC Rel Count (0.00-0.1) % Eos # (Auto) (0-0.5) x10^3/uL Immature Gran # (Auto) (0.00-0.03) x10^3u/L Absolute Lymphs (auto) (1.0-4.6) x10^3/uL Absolute Monos (auto) (0.0-1.3) x10^3/uL Absolute Nucleated RBC (0.00-0.01) x10^3u/L Lymphocytes % (24.0-44.0) % Monocytes % (0.0-12.0) % Eosinophils % (0.00-5.0) % Basophils % (0.0-0.4) % Absolute Granulocytes (1.4-6.9) x10^3/uL Basophils # (0-0.4) x10^3/uL Sodium (137-145) mmol/L Potassium (3.5-5.1) mmol/L Chloride (98-107) mmol/L Carbon Dioxide (22-30) mmol/L Anion Gap (5-15) MEQ/L BUN (7-17) mg/dL Creatinine (0.52-1.04) mg/dL Estimated GFR ML/MIN Glucose (74-106) mg/dL Lactic Acid (0.4-2.0) Calcium (8.4-10.2) mg/dL Magnesium 1.8 (1.6-2.3) mg/dL Total Bilirubin (0.2-1.3) mg/dL AST (14-36) U/L ALT (0-35) U/L Alkaline Phosphatase (38-126) U/L Troponin I < 0.012 (0.000-0.034) ng/mL Serum Total Protein (6.3-8.2) g/dL Albumin (3.5-5.0) g/dL Lipase (23-300) U/L Procalcitonin 0.581 H (0.030-0.080) ng/mL Urine Color (Yellow) Urine Appearance (Clear) Urine pH (4.6-8.0) Ur Specific [place] (1.005-1.030) Urine Protein (Negative) Urine Glucose (UA) (Negative) mg/dL Urine Ketones (Negative) Urine Blood (Negative) Urine Nitrite (Negative) Urine Bilirubin (Negative) Urine Urobilinogen (0.2) mg/dL Ur Leukocyte Esterase (Negative) U Hyaline Cast (Auto) (0-2) /LPF Urine Microscopic RBC (0-5) /HPF Urine Microscopic WBC (0-5) /HPF Ur Epithelial Cells (None Seen) /HPF Urine Bacteria (None Seen) /HPF Urine Culture Reflexed (NO) Slides for Path Review 05/23/23 05/23/23 05/23/23 Range/Units 15:15 16:58 17:45 WBC (4.0-10.5) x10^3/uL RBC (4.1-5.4) x10^6/uL Hgb (12.0-16.0) g/dL Hct (35-47) % MCV (78-100) fL MCH (26-32) pg MCHC (32-36) g/dL RDW (11.5-14.0) % Plt Count (150-450) x10^3/uL MPV (7.5-11.0) fL Gran % (36.0-66.0) % Immature Gran % (Auto) (0.00-0.4) % Nucleat RBC Rel Count (0.00-0.1) % Eos # (Auto) (0-0.5) x10^3/uL Immature Gran # (Auto) (0.00-0.03) x10^3u/L Absolute Lymphs (auto) (1.0-4.6) x10^3/uL Absolute Monos (auto) (0.0-1.3) x10^3/uL Absolute Nucleated RBC (0.00-0.01) x10^3u/L Lymphocytes % (24.0-44.0) % Monocytes % (0.0-12.0) % Eosinophils % (0.00-5.0) % Basophils % (0.0-0.4) % Absolute Granulocytes (1.4-6.9) x10^3/uL Basophils # (0-0.4) x10^3/uL Sodium (137-145) mmol/L Potassium (3.5-5.1) mmol/L Chloride (98-107) mmol/L Carbon Dioxide (22-30) mmol/L Anion Gap (5-15) MEQ/L BUN (7-17) mg/dL Creatinine (0.52-1.04) mg/dL Estimated GFR ML/MIN Glucose (74-106) mg/dL Lactic Acid 1.7 (0.4-2.0) Calcium (8.4-10.2) mg/dL Magnesium (1.6-2.3) mg/dL Total Bilirubin (0.2-1.3) mg/dL AST (14-36) U/L ALT (0-35) U/L Alkaline Phosphatase (38-126) U/L Troponin I < 0.012 (0.000-0.034) ng/mL Serum Total Protein (6.3-8.2) g/dL Albumin (3.5-5.0) g/dL Lipase (23-300) U/L Procalcitonin (0.030-0.080) ng/mL Urine Color Dark Yellow A (Yellow) Urine Appearance Turbid A (Clear) Urine pH 5.0 (4.6-8.0) Ur Specific [place] >=1.030 A (1.005-1.030) Urine Protein 100 A (Negative) Urine Glucose (UA) Negative (Negative) mg/dL Urine Ketones Trace A (Negative) Urine Blood Negative (Negative) Urine Nitrite Negative (Negative) Urine Bilirubin Moderate A (Negative) Urine Urobilinogen 1.0 A (0.2) mg/dL Ur Leukocyte Esterase Small A (Negative) U Hyaline Cast (Auto) >50 A (0-2) /LPF Urine Microscopic RBC 3-5 (0-5) /HPF Urine Microscopic WBC 6-10 A (0-5) /HPF Ur Epithelial Cells Moderate A (None Seen) /HPF Urine Bacteria Few A (None Seen) /HPF Urine Culture Reflexed YES (NO) Slides for Path Review 05/23/23 05/24/23 05/24/23 Range/Units 21:10 04:38 04:38 WBC 7.9 (4.0-10.5) x10^3/uL RBC 4.10 (4.1-5.4) x10^6/uL Hgb 11.6 L (12.0-16.0) g/dL Hct 38.6 (35-47) % MCV 94.1 (78-100) fL MCH 28.3 (26-32) pg MCHC 30.1 L (32-36) g/dL RDW 13.6 (11.5-14.0) % Plt Count 177 (150-450) x10^3/uL MPV 10.2 (7.5-11.0) fL Gran % 86.9 H (36.0-66.0) % Immature Gran % (Auto) 0.4 (0.00-0.4) % Nucleat RBC Rel Count 0.0 (0.00-0.1) % Eos # (Auto) 0.01 (0-0.5) x10^3/uL Immature Gran # (Auto) 0.03 (0.00-0.03) x10^3u/L Absolute Lymphs (auto) 0.34 L (1.0-4.6) x10^3/uL Absolute Monos (auto) 0.65 (0.0-1.3) x10^3/uL Absolute Nucleated RBC 0.00 (0.00-0.01) x10^3u/L Lymphocytes % 4.3 L (24.0-44.0) % Monocytes % 8.2 (0.0-12.0) % Eosinophils % 0.1 (0.00-5.0) % Basophils % 0.1 (0.0-0.4) % Absolute Granulocytes 6.90 (1.4-6.9) x10^3/uL Basophils # 0.01 (0-0.4) x10^3/uL Sodium 137 (137-145) mmol/L Potassium 4.8 (3.5-5.1) mmol/L Chloride 109 H (98-107) mmol/L Carbon Dioxide 21 L (22-30) mmol/L Anion Gap 12.7 (5-15) MEQ/L BUN 28 H (7-17) mg/dL Creatinine 1.50 H (0.52-1.04) mg/dL Estimated GFR 37.3 ML/MIN Glucose 91 (74-106) mg/dL Lactic Acid (0.4-2.0) Calcium 8.3 L (8.4-10.2) mg/dL Magnesium (1.6-2.3) mg/dL Total Bilirubin 1.10 (0.2-1.3) mg/dL AST 33 (14-36) U/L ALT 26 (0-35) U/L Alkaline Phosphatase 37 L (38-126) U/L Troponin I < 0.012 (0.000-0.034) ng/mL Serum Total Protein 6.2 L (6.3-8.2) g/dL Albumin 3.5 (3.5-5.0) g/dL Lipase (23-300) U/L Procalcitonin (0.030-0.080) ng/mL Urine Color (Yellow) Urine Appearance (Clear) Urine pH (4.6-8.0) Ur Specific [place] (1.005-1.030) Urine Protein (Negative) Urine Glucose (UA) (Negative) mg/dL Urine Ketones (Negative) Urine Blood (Negative) Urine Nitrite (Negative) Urine Bilirubin (Negative) Urine Urobilinogen (0.2) mg/dL Ur Leukocyte Esterase (Negative) U Hyaline Cast (Auto) (0-2) /LPF Urine Microscopic RBC (0-5) /HPF Urine Microscopic WBC (0-5) /HPF Ur Epithelial Cells (None Seen) /HPF Urine Bacteria (None Seen) /HPF Urine Culture Reflexed (NO) Slides for Path Review YES Micro Results-Entire Visit: Microbiology 05/23/23 16:58 Urine Culture - Preliminary Clean Catch Midstream NO GROWTH TO DATE - Radiology Exams Ordered Rad Exams-Entire Visit: Radiology Procedures Category Date Time Status ABDOMEN AND PELVIS W/0 CONTRAS [CT] Stat Exams 05/23/23 12:58 Completed CHEST 1 VIEW (PORTABLE) Stat Exams 05/23/23 12:58 Completed HEAD WITHOUT CONTRAST [CT] Stat Exams 05/23/23 12:[address] abdomen pelvis: No acute intra-abdominal abnormality. Few noncomplicated colonic diverticulosis involving sigmoid colon without evidence of diverticulitis. CT head: No acute intracranial abnormality - Procedures and Test Procedures and Tests throughout Hospitalization: Therapy Orders & Screens 05/23/23 18:07 Respiratory Therapy Assessment DAILY Comment: Diagnosis: Syncope Discharge Exam General Appearance: no apparent distress Neurologic Exam: alert, oriented x 3 Respiratory Exam: normal breath sounds, lungs clear, No accessory muscle use Cardiovascular Exam: regular rate/rhythm, No murmur, No edema Gastrointestinal/Abdomen Exam: soft, No tenderness, No distention Skin Exam: other (Head laceration with edges well approximated, sutures intact) Wound Assessment: Skin/Wound Assessment Wound/Incision Assessment Start: 05/23/23 17:36 Text: Status: Active Freq: Q12H Protocol: Document 05/24/23 08:00 DIANE (Rec: 05/24/23 10:03 AR [id number]) Wound/Incision Assessment Left Frontal Wound Assessment Shift Assessment Wound Type Laceration Drainage Odor None/Absent General Appearance Well Approximated,Michael Intact,Open to air Final Diagnosis/Problem List - Final Discharge Diagnosis/Problem (1) Acute gastroenteritis Current Visit: Yes Status: Acute Code(s): K52.9 - NONINFECTIVE GASTROENTERITIS AND COLITIS, UNSPECIFIED (2) Acute renal failure Current Visit: Yes Status: Acute (3) Syncope due to orthostatic hypotension Current Visit: Yes Status: Acute Code(s): I95.1 - ORTHOSTATIC HYPOTENSION Telemedicine Encounter - Telemedicine Encounter Telemedicine Encounter: The entirety of this encounter was performed via Telemedicine" - Discharge Discharge Date: 05/24/23 Disposition: Home, Self-Care Condition: Stable Prescriptions: Continue Acetaminophen [Tylenol Extra Strength] 500 mg PO Q4H PRN PRN Reason: Headache Esomeprazole Magnesium [Nexium] 40 mg PO HS Escitalopram Oxalate [Lexapro] 20 mg PO HS Metoprolol Succinate 25 mg PO BID Spironolact/Hydrochlorothiazid [Aldactazide 25-25 Tablet] 1 each PO DAILY lisinopriL [Lisinopril] 40 mg PO HS Pravastatin Sodium 40 mg PO HS Budesonide/Formoterol Fumarate [Budesonide-Formoterol 160-4.5] 2 puffs IH BID Albuterol Sulfate 1 amp IH Q4H PRN PRN Reason: wheeeze Instructions: Orthostatic Hypotension (DC) Follow up with: RADHAMES NEGRO MD [Primary Care Provider] - 1 Week
[2023-05-24] MEDS ORDERED: NON-FORMULARY ITEM (Lisinopril [Lisinopril] 40 MG Tablet) PO SCH (22:00)
[2023-05-24] MEDS ORDERED: Lexapro PO SCH (22:00)
[2023-05-24] MEDS ORDERED: NON-FORMULARY ITEM (Esomeprazole Magnesium [Nexium] 40 MG Capsule.Dr) PO SCH (22:00)
[2023-05-24] MEDS ORDERED: NON-FORMULARY ITEM (Escitalopram Oxalate [Lexapro] 20 MG Tablet) PO SCH (22:00)
[2023-05-24] MEDS ORDERED: Zestril 20 MG PO SCH (22:00)
[2023-05-24] MEDS ORDERED: NON-FORMULARY ITEM (Pravastatin Sodium [Pravastatin Sodium] 40 MG Tablet) PO SCH (22:00)
[2023-05-24] MEDS ORDERED: Protonix 40MG Tablet PO SCH (22:00)
[2023-05-24] MEDS ORDERED: ZOCOR 20MG PO SCH (22:00)
== END 2023-05-24 12:14 | disposition home or self-care (01) ==
LOC: ED 12:23 → MED SURG 17:13
PROVIDERS: ADMIT Internal Medicine; ATTEND Internal Medicine
DX: K52.9 Noninfective gastroenteritis and colitis, unspecified (principal); N17.9 Acute kidney failure, unspecified; I95.1 Orthostatic hypotension; I10 Essential (primary) hypertension; E78.5 Hyperlipidemia, unspecified; W19.XXXA Unspecified fall, initial encounter; Z79.899 Other long term (current) drug therapy; Z20.828 Contact with and (suspected) exposure to other viral communicable diseases; Z85.3 Personal history of malignant neoplasm of breast
CPT/HCPCS: 12011; 36415; 70450; 71045; 74176; 80053; 81001; 83605; 83690; 83735; 84145; 84484; 85025; 87086; 93005; 93268; 94640; 94760; 96360; 96374; 99285; G0378; Q3014; 94762; J2405; A9270-GY

== ENCOUNTER 2024-12-22 18:34 | Emergency (ER) | payer MEDICARE, OTHER ==
[2024-12-22 22:26] VITALS: TEMP 98
--- NOTE | 2024-12-22 22:26 | ERPHSYRPT ---
- History of Present Illness Time Seen by Provider: 12/22/24 22:25 Source: patient Exam Limitations: no limitations Physician History: 64yo f presents via private vehicle for cough, sob. Pt reports she developed cough and sinus congestion [employer]d [employer], reports is sick at home w/ flu A. Pt has hx of COPD, reports she has been using her prn oxygen most of the day today, usually wears it only at night. Pt reports she has been taking multiple OTC cough medications w/o significant relief. Pt reports some body aches and chills earlier in the week, denies any known fevers at home. Pt currently denies any cp, n/v/d. Timing/Duration: day(s) (5) Cough Quality/Degree: moderate Possible Cause: frequent episodes Modifying Factors: Improves With: nothing Associated Symptoms: chills, cough, muscle aches, nasal congestion, shortness of breath Allergies/Adverse Reactions: moxifloxacin HCl [From Avelox] Allergy (Intermediate, Verified 05/23/23 12:24) rash, itching, tachycardia Home Medications: Acetaminophen [Tylenol Extra Strength] 500 mg PO Q4H PRN 03/25/12 [History] Escitalopram Oxalate [Lexapro] 20 mg PO HS 03/25/12 [History] Esomeprazole Magnesium [Nexium] 40 mg PO HS 03/25/12 [History] Metoprolol Succinate 25 mg PO BID 03/25/12 [History] Albuterol Sulfate 1 amp IH Q4H PRN 05/23/23 [History] Budesonide/Formoterol Fumarate [Budesonide-Formoterol 160-4.5] 2 puffs IH BID 05/23/23 [History] Pravastatin Sodium 40 mg PO HS 05/23/23 [History] Spironolact/Hydrochlorothiazid [Aldactazide 25-25 Tablet] 1 each PO DAILY 05/23/23 [History] lisinopriL [Lisinopril] 40 mg PO HS 05/23/23 [History] Hx Tetanus, Diphtheria Vaccination/Date Given: No (20 YRS AGO) Hx Influenza Vaccination/Date Given: No Hx Pneumococcal Vaccination/Date Given: Yes - Review of Systems Constitutional: No Symptoms Respiratory: Cough, Dyspnea, Stridor, Wheezing Cardiac: No Symptoms Abdominal/Gastrointestinal: No Symptoms - Past Medical History Pertinent Past Medical History: Yes Neurological History: No Pertinent History ENT History: No Pertinent History Cardiac History: High Cholesterol, Hypertension Respiratory History: No Pertinent History, COPD Endocrine Medical History: No Pertinent History Musculoskeletal History: No Pertinent History GI Medical History: GERD, Gallbladder Disease History: No Pertinent History Psycho-Social History: Depression Female Reproductive Disorders: Breast Cancer Other Medical History: 13 LYMPH NODES REMOVED IN HER LEFT ARM IN 1985 - Past Surgical History Past Surgical History: Yes Neuro Surgical History: No Pertinent History Cardiac: No Pertinent History Respiratory: No Pertinent History Gastrointestinal: Cholecystectomy Genitourinary: No Pertinent History Musculoskeletal: No Pertinent History Female Surgical History: Mastectomy, Breast Implant Other Surgical History: 13 LYMPH NODES REMOVED IN HER LEFT ARM, LILA MASTECTOMY FROM BREAST CA WITHOUT ANY CHEMO TX, GALLBLADDER SX 2011 - Social History Smoking Status: Former smoker How long have you smoked: 35 Exposure to second hand smoke: No Drug Use: none Patient Lives Alone: No - Nursing Vital Signs Nursing Vital Signs: Initial Vital Signs Temperature 98.0 F 12/22/24 22:12 Pulse Rate 80 12/22/24 22:12 Respiratory Rate 18 12/22/24 22:12 Blood Pressure 164/66 12/22/24 22:12 O2 Sat by Pulse Oximetry 91 L 12/22/24 22:12 Pain Scale Pain Intensity 0 - Physical Exam General Appearance: no apparent distress, alert Respiratory Exam: normal breath sounds, airway intact, diminished breath sounds, No chest tenderness, No respiratory distress, No crackles/rales, No rhonchi, No wheezing, No stridor Cardiovascular Exam: regular rate/rhythm, normal heart sounds, normal peripheral pulses Gastrointestinal/Abdomen Exam: soft, No tenderness, No distention Ordered Tests: Active Orders 24 hr Category Date Time Status CHEST 2 VIEWS (PA AND LAT) Stat Exams 12/22/24 22:25 Taken Respiratory Therapy Assessment DAILY RT 12/22/24 23:07 Active Medication Summary Discontinued Medications Generic Name Dose Route Start Last Admin Trade Name Freq PRN Reason Stop Dose Admin Albuterol/Ipratropium 3 ml 12/22/24 22:49 12/22/24 23:07 Ipratropium/Albuterol Sulfate 3 Ml Ampul.Neb IH 12/22/24 22:50 3 ml STAT ONE Administration Albuterol/Ipratropium Confirm 12/22/24 22:55 Ipratropium/Albuterol Sulfate 3 Ml Ampul.Neb Administered 12/22/24 22:56 Dose 3 ml IH .STK-MED ONE Methylprednisolone Sodium 0 mg 12/22/24 22:49 12/22/24 22:58 Succinate 125 mg/ Sterile IV 12/22/24 22:50 125 mg Water 2 ml STAT ONE Administration Methylprednisolone Sodium Succinate Confirm 12/22/24 22:57 Methylprednis Sod Succ 125 Mg/2 Ml Vial Administered 12/22/24 22:58 Dose 125 mg .ROUTE .STK-MED ONE Sterile Water Confirm 12/22/24 22:57 Water For Injection,Sterile 10 Ml Vial Administered 12/22/24 22:58 Dose 10 ml IJ .STK-MED ONE Lab/Rad Data: Laboratory Results 12/22/24 Range/Units 22:43 Influenza Type A Ag POSITIVE A (NEGATIVE) Influenza Type B Ag NEGATIVE (NEGATIVE) RSV (PCR) NEGATIVE (NEGATIVE) SARS-CoV-2 (PCR) NEGATIVE (NEGATIVE) - Progress Progress: improved Air Movement: fair Progress Note: 12/23/24 00:41 pt reports significant improvement in sx following dose of steroids and duoneb 12/23/24 00:42 viral swabs + for flu A vitals have been stable, sat good on 2L O2 no tamiflu - out of 72h window plan for discharge home w/ PCP f/u this week - Robbin recommend plenty of oral hydration w/ clear liquids and electrolyte containing fluids recommend continuing home nebulizer treatments regularly return to ED if: shortness of breath worsens, develop chest pain, develop fevers that do not resolve w/ tylenol/ibuprofen Blood Culture(s) Obtained: No Antibiotics given: No Counseled pt/family regarding: lab results, diagnosis, need for follow-up, rad results Medical Desision Making - Diagnostic Testing Diagnostic test were ordered, analyzed, and reviewed by me: Yes Radiological Interpretation: Interpreted by me, Reviewed by me - Risk of complications Minimal Risk: Minimal risk of morbidity - Departure Departure Disposition: Home Clinical Impression: Influenza A Condition: Stable Critical Care Time: No Referrals: RADHAMES NEGRO MD [Primary Care Provider] - Follow up/PCP as directed Additional Instructions: plan for discharge home w/ PCP f/u this week - Robbin recommend plenty of oral hydration w/ clear liquids and electrolyte containing fluids recommend continuing home nebulizer treatments regularly return to ED if: shortness of breath worsens, develop chest pain, develop fevers that do not resolve w/ tylenol/ibuprofen
[2024-12-22] MEDS ORDERED: DUONEB 0.5-3 MG/3 ml Neb IH ONE (22:55)
[2024-12-22] MEDS ORDERED: Sterile H2O 10 ml IJ ONE (22:57)
[2024-12-22] MEDS ORDERED: solu-MEDROL ONE (22:57)
[2024-12-22] MEDS: solu-MEDROL 125 MG, Sterile H2O 10 ml 2 ML IV ONE (22:58)
[2024-12-22] MEDS: DUONEB 0.5-3 MG/3 ml Neb IH ONE (23:07)
[2024-12-22 23:08] VITALS: PULSE 73; RESP 22
[2024-12-22 23:23] LABS: INFLUENZA B NEGATIVE (NEGATIVE); RESPIRATORY SYNCTIAL VIRUS NEGATIVE (NEGATIVE); SARS-CoV-2 Xpert Express NEGATIVE (NEGATIVE)
[2024-12-22 23:35] LABS: INFLUENZA A POSITIVE (NEGATIVE)
[2024-12-23 01:23] VITALS: BP 150/50; O2SAT 92
--- NOTE | 2024-12-23 08:47 | XRAY ---
Indication: Cough. Comparison: October 21, 2023 PA/lateral chest again hyperinflated with new minimal left base subsegmental atelectasis/scarring. Remaining lungs clear. Heart and mediastinal structures within normal limits. Bony thorax intact again with osteopenia, mild degenerative changes, and right axilla surgical clips. Impression: Nonacute hyperinflated chest with chronic features.
== END 2024-12-23 01:16 | disposition home or self-care (01) ==
LOC: ED 18:34
DX: J10.1 Influenza due to other identified influenza virus with other respiratory manifestations (principal); R05.1 Acute cough; R06.02 Shortness of breath; E78.5 Hyperlipidemia, unspecified; I10 Essential (primary) hypertension; Z79.899 Other long term (current) drug therapy
CPT/HCPCS: 0241U; 71046; 94640; 96374; 99285; 99283; J2919; A9270-GY